=== PATIENT | female | born 1970 | race Caucasian/White ===

== ENCOUNTER 2016-05-15 13:22 | Emergency (ER) | payer OTHER ==
[2016-05-15] MEDS ORDERED: diazePAM 5 MG TABLET PO ONE ×2 (13:25→16:17)
--- NOTE | 2016-05-15 13:25 | PDOC ---
History of Present Illness - General Stated Complaint: DIZZINESS Time Seen by Provider: 05/15/16 13:23 History Source: Patient Exam Limitations: No Limitations - History of Present Illness Initial Comments: 05/15/16 13:23 The patient is a 46-year-old female with a significant past medical history of bipolar disorder, who presents to the emergency department complaining of anxiety. She states that she has had recent increased stress in her life. She woke up this morning feeling "nervous and shaky," dizzy, and with a feeling of "breathlessness." She describes the "dizziness" as "the room spinning." It only occurs with head movement. It lasts for seconds, and then resolves. She denies double vision, difficulty speaking, difficulty swallowing, focal weakness or paresthesias. She reports slight nausea earlier, but no vomiting. The nausea has now resolved. She denies chest pain, back pain. She denies palpitations. The patient denies recent travel/surgeries/immobility, lower extremity edema, calf pain or tenderness, tobacco use, hormone use, personal or family history of thrombosis. 05/15/16 13:25 05/15/16 15:38 Past History - Past Medical History Allergies/Adverse Reactions: Allergies Allergy/AdvReac Type Severity Reaction Status Date / Time No Known Allergies Allergy Verified 04/29/16 14:20 Home Medications: Ambulatory Orders Diazepam [Valium] 5 mg PO Q8H PRN #6 tablet MDD 3 05/15/16 Lexapro - 05/15/16 Meclizine HCl [Antivert -] 25 mg PO TID #30 tablet 05/15/16 Meclizine HCl [Antivert -] 25 mg PO TID #30 tablet 05/15/16 Risperdal 05/15/16 Psychiatric Problems: Yes (depression, anxiety) Suicide Attempt (Hx): No - Immunization History Immunization Up to Date: Yes - Psycho/Social/Smoking Cessation Hx Anxiety: No Suicidal Ideation: No Smoking History: Current every day smoker Have you smoked in the past 12 months: Yes Number of Cigarettes Smoked Daily: 30 'Breaking Loose' booklet given: 12/15/14 Hx Alcohol Use: No Drug/Substance Use Hx: No Review of Systems - Review of Systems Comments:: 05/15/16 13:25 CONSTITUTIONAL: Absent: fever, chills, diaphoresis, generalized weakness, malaise, loss of appetite HEENT: Absent: rhinorrhea, nasal congestion, throat pain, throat swelling, difficulty swallowing, mouth swelling, ear pain, eye pain, visual Changes CARDIOVASCULAR: Absent: chest pain, loss of consciousness, palpitations, irregular heart rate, peripheral edema RESPIRATORY: Present: See history of present illness Absent: cough, orthopnea, wheezing, stridor, hemoptysis GASTROINTESTINAL: Present: Nausea Absent: abdominal pain, abdominal distension, vomiting, diarrhea, constipation, melena, hematochezia GENITOURINARY: Absent: dysuria, frequency, urgency, hesitancy, hematuria, flank pain, genital pain MUSCULOSKELETAL: Absent: myalgia, arthralgia, joint swelling SKIN: Absent: rash, itching, pallor HEMATOLOGIC/IMMUNOLOGIC: Absent: easy bleeding, easy bruising, lymphadenopathy, frequent infections ENDOCRINE: Absent: unexplained weight gain, unexplained weight loss, heat intolerance, cold intolerance NEUROLOGIC: Absent: headache, focal weakness or paresthesias, dizziness, unsteady gait, seizure, mental status changes, bladder or bowel incontinence PSYCHIATRIC: Present: Anxiety Absent: suicidal or homicidal ideation, hallucinations. 05/15/16 13:26 *Physical Exam - Physical Exam Comments: 05/15/16 15:39 GENERAL: Well developed, well nourished. Awake and alert. No acute distress. HEENT: Normocephalic, atraumatic. PERRLA, EOMI. No conjunctival pallor. Sclera are non- icteric. Moist mucous membranes. Oropharynx is clear. NECK: Supple. Full ROM. No JVD. Carotid pulses 2+ and symmetric, without bruits. No thyromegaly. No lymphadenopathy. CARDIOVASCULAR: Regular rate and rhythm. No murmurs, rubs, or gallops. Distal pulses are 2+ and symmetric. PULMONARY: No evidence of respiratory distress. Lungs clear to auscultation bilaterally. No wheezing, rales or rhonchi. ABDOMINAL: Soft. Non-tender. Non-distended. No rebound or guarding. No organomegaly. Normoactive bowel sounds. MUSCULOSKELETAL Normal range of motion at all joints. No bony deformities or tenderness. No CVA tenderness. EXTREMITIES: No cyanosis. No clubbing. No edema. No calf tenderness. SKIN: Warm and dry. Normal capillary refill. No rashes. No jaundice. NEURO: Alert, awake, appropriate. Cranial nerves 2-12 intact. No deficits to light touch and temperature in face, upper extremities and lower extremities. No motor deficits in the in face, upper extremities and lower extremities. No pronator drift. Normoreflexic in the upper and lower extremities. Normal speech. Toes are down-going bilaterally. Gait is normal without ataxia. No dysmetria. No dysdiadochokinesis. No skew deviation. No abnormal nystagmus. Rhomberg is -. Head thrust test is + on right. Dixs-Hallpike test is + on right. PSYCHIATRIC: Cooperative. Good eye contact. Appropriate mood and affect. Heart Score/ECG Review - ECG Intrepretation Comment:: 05/15/16 15:50 Wavy baseline because the patient is anxious and shaking Normal sinus rhythm at 90, normal axis, normal intervals, no ST changes ED Treatment Course - LABORATORY CBC & Chemistry Diagram: 05/15/16 14:51 05/15/16 14:47 Medical Decision Making - Medical Decision Making 05/15/16 13:26 The patient is anxious, but well-appearing On my exam, heart rate is in the 60s Her clinical presentation is consistent with panic attack, perhaps accompanied by peripheral vertigo Will obtain EKG Will administer Valium and reassess 05/15/16 13:45 She states that her anxiety is much better The patient continues to complain of "vertigo" Will administer Benadryl for its anxiolytic as well as antivertiginous properties She also continues to complain that she feels "breathless" and "panicky" She is requesting chest x-ray to "check her lungs" Will perform portable CXR She is low risk for pulmonary embolism with a Wells score of 0 PERC negative 05/15/16 14:11 Chest x-ray emergency Department interpretation: No acute cardiopulmonary disease 05/15/16 14:39 The patients symptoms persist, though they have improved Will obtain labs including d-dimer 05/15/16 15:27 Chemistries noted D-dimer pending 05/15/16 15:40 Anxiety has considerably improved Vertigo is improved, but persists Will administer meclizine 05/15/16 16:31 D-dimer continues to be pending I have asked the lab to expedite the findings Repeat EKG: Normal sinus rhythm, without evidence of ectopy 05/15/16 17:01 Vertigo symptoms much improved Repeat neuro exam nonfocal The patient feels better and would like to go home Clinical impression: Panic attack Peripheral vertigo I discussed the physical exam findings, ancillary test results and final diagnoses with the patient. I answered all of the patient's questions. The patient was satisfied with the care received and felt comfortable with the discharge plan and treatment plan. The patient will call their primary care physician within 24 hours to arrange follow-up and will return to the Emergency Department with any new, persistent or worsening symptoms. *DC/Admit/Observation/Transfer Diagnosis at time of Disposition: Anxiety, Vertigo - Discharge Dispostion Disposition: HOME Condition at time of disposition: Improved - Prescriptions Prescriptions: Meclizine HCl [Antivert -] 25 mg PO TID #30 tablet Meclizine HCl [Antivert -] 25 mg PO TID #30 tablet Diazepam [Valium] 5 mg PO Q8H PRN #6 tablet MDD 3 PRN Reason: Anxiety - Referrals Referrals: Lindsey Ortega MD [Primary Care Provider] - Slick Gurrola MD [Staff Physician] - Call tomorrow (See this psychiatrist for treatment if you need a new psychiatrist.) - Patient Instructions Printed Discharge Instructions: Benign Paroxysmal Positional Vertigo, DI for Panic Disorder Additional Instructions: Return to the emergency department immediately with ANY new, persistent or worsening symptoms. You MUST call and follow up with your doctor tomorrow. Please make sure your doctor reviews the results of your emergency department evaluation.
[2016-05-15 13:34] VITALS: BP 129/89; PULSE 94; BMI 27.4
[2016-05-15] MEDS ORDERED: diazePAM 5 MG TABLET ONE ×2 (13:34→16:19)
[2016-05-15] MEDS ORDERED: diphenhydrAMINE HCL 25 MG CAPSULE (FP) PO ONE ×3 (13:45→13:54)
[2016-05-15 14:54] LABS: BASOPHIL 0.2 % (0-2.0); EOSINOPHIL 1.6 % (0-4.5); MCH 28.4 pg (25.7-33.7); MCHC 33.6 g/dl (32.0-36.0); MEAN CELL VOLUME 84.6 fl (80-96); MEAN PLT VOLUME 7.2 fl (7.5-11.1); NEUTROPHILS 74.1 % (42.8-82.8); PLATELET COUNT 295 K/MM3 (134-434); RDW 15.4 % (11.6-15.6); WHITE BLOOD COUNT 12.2 K/mm3 (4.0-10.0)
[2016-05-15 15:07] LABS: ALBUMIN 3.5 g/dl (3.5-5.0); ALK PHOS 97 U/L (32-92); ANION GAP 8 (8-16); CALCIUM 8.6 mg/dl (8.4-10.2); CO2 23 mmol/L (22-28); CREATININE 0.8 mg/dl (0.6-1.3); GLUCOSE,RANDOM 116 mg/dl (74-106); MAGNESIUM 1.8 mg/dL (1.8-2.4); PHOSPHOROUS 2.2 mg/dl (2.5-4.6); SGOT/AST 21 U/L (10-42); SGPT/ALT 15 U/L (10-40); TOT PROT 6.2 g/dl (6.4-8.3)
[2016-05-15 15:15] VITALS: TEMP 98
[2016-05-15 15:19] LABS: BILIRUBIN,TOTAL < 0.3 mg/dl (0.2-1.0)
[2016-05-15] MEDS ORDERED: MECLIZINE HCL 25 MG TABLET (FP) ONE (15:39)
[2016-05-15] MEDS ORDERED: MECLIZINE HCL 25 MG TABLET (FP) PO ONE (15:42)
--- NOTE | 2016-05-16 14:49 | EKG ---
Test Reason : Blood Pressure : / mmHG Vent. Rate : 085 BPM Atrial Rate : 085 BPM P-R Int : 142 ms QRS Dur : 080 ms QT Int : 378 ms P-R-T Axes : 057 -05 016 degrees QTc Int : 449 ms POOR DATA QUALITY, INTERPRETATION MAY BE ADVERSELY AFFECTED NORMAL SINUS RHYTHM NORMAL ECG WHEN COMPARED WITH ECG OF 29-APR-2016 16:39, T WAVE INVERSION NO LONGER EVIDENT IN ANTERIOR LEADS Confirmed by BIBI MCNALLY, EDWIN ([id number]) on 05/16/2016 2:48:44 PM Referred By: FILIBERTO Confirmed By:EDWIN MTZ MD
== END 2016-05-15 17:16 | disposition home or self-care (01) ==
LOC: SUPCPDRO 13:22 → FER 13:22
DX: F41.9 Anxiety disorder, unspecified (principal); R42 Dizziness and giddiness; F31.9 Bipolar disorder, unspecified; F17.210 Nicotine dependence, cigarettes, uncomplicated
CPT/HCPCS: 36415; 71010-TC; 80053; 83735; 84100; 85025; 85379; 93005; 99283-25

== ENCOUNTER 2016-11-01 16:46 | Emergency (ER) | payer OTHER ==
[2016-11-01 16:53] VITALS: BP 141/80; PULSE 90; TEMP 98; BMI 25.7
--- NOTE | 2016-11-01 16:54 | PDOC ---
History of Present Illness - General Chief Complaint: Psychiatric Stated Complaint: anxiety Time Seen by Provider: 11/01/16 16:51 History Source: Patient Exam Limitations: No Limitations - History of Present Illness Initial Comments: 11/01/16 16:51 The patient is a 46-year-old female with a significant past medical history of anxiety, who presents to the emergency department requesting refills of her Ativan. She states that she recently "ran out" and "needs the medication to reduce her anxiety." She denies suicidal ideation, homicidal ideation, hallucinations, paranoia. Her family member, who is with her, corroborates that she has been anxious, but has not had any of the symptoms mentioned in the previous sentence. She denies palpitations, headache, tremor, nausea/vomiting, fever. Past History - Past Medical History Allergies/Adverse Reactions: Allergies Allergy/AdvReac Type Severity Reaction Status Date / Time No Known Allergies Allergy Verified 11/01/16 16:47 Home Medications: Ambulatory Orders Risperdal 05/15/16 Lorazepam 1 mg PO TID 11/01/16 Psychiatric Problems: Yes (depression, anxiety) Suicide Attempt (Hx): No - Immunization History Immunization Up to Date: Yes - Psycho/Social/Smoking Cessation Hx Anxiety: No Suicidal Ideation: No Smoking History: Current every day smoker Have you smoked in the past 12 months: Yes Number of Cigarettes Smoked Daily: 30 'Breaking Loose' booklet given: 12/15/14 Hx Alcohol Use: No Drug/Substance Use Hx: No Review of Systems - Review of Systems Comments:: 11/01/16 16:52 CONSTITUTIONAL: Absent: fever, chills, fatigue EYES: Absent: visual changes ENT: Absent: ear pain, sore throat CARDIOVASCULAR: Absent: chest pain, palpitations, loss of consciousness RESPIRATORY: Absent: cough, SOB GI: Absent: abdominal pain, nausea, vomiting, constipation, diarrhea GENITOURINARY: Absent: dysuria, frequency, hematuria MUSKULOSKELETAL: Absent: back pain, arthralgia, myalgia SKIN: Absent: rash NEURO: Present: Anxiety Absent: headache, dizziness *Physical Exam - Physical Exam Comments: 11/01/16 16:52 GENERAL: Well-appearing, well-nourished. No apparent distress. HEENT: Normocephalic, atraumatic. PERRL, EOM intact. CARDIOVASCULAR: Normal S1, S2. Regular rate and rhythm. PULMONARY: Clear to auscultation bilaterally. ABDOMEN: Soft, non-distended, non-tender. EXTREMITIES: Normal ROM in all four extremities. No gross deformities. SKIN: Warm, dry. No rash NEUROLOGICAL: Present: Mild anxiety No focal neurological deficits. Medical Decision Making - Medical Decision Making 11/01/16 16:52 The patient is well-appearing and in no acute distress There is no evidence of benzodiazepine withdrawal I have advised her to seek treatment with psychiatry, and have referred her appropriately I have informed her that either a psychiatrist or her primary care physician needs to prescribe long-term anxiolytic medications, including Ativan if indicated Clinical impression: Anxiety Medication refill I discussed the physical exam findings and final diagnoses with the patient. I answered all of the patient's questions. The patient was satisfied with the care received and felt comfortable with the discharge plan and treatment plan. The patient will call their primary care physician within 24 hours to arrange follow-up and will return to the Emergency Department with any new, persistent or worsening symptoms. *DC/Admit/Observation/Transfer Diagnosis at time of Disposition: Anxiety - Discharge Dispostion Disposition: HOME Condition at time of disposition: Stable - Referrals Referrals: Slick Gurrola MD [Staff Physician] - Call tomorrow - Patient Instructions Printed Discharge Instructions: DI for Anxiety -- Adult Additional Instructions: A primary care physician or psychiatrist needs to manage further refills of your Ativan, after you are evaluated for anxiety. Return to the emergency department immediately with ANY new, persistent or worsening symptoms. You MUST call and follow up with your doctor tomorrow. Please make sure your doctor reviews the results of your emergency department evaluation.
== END 2016-11-01 17:05 | disposition home or self-care (01) ==
LOC: FER 16:46
DX: F41.8 Other specified anxiety disorders (principal); F17.210 Nicotine dependence, cigarettes, uncomplicated
CPT/HCPCS: 99281-25

== ENCOUNTER 2016-11-04 14:05 | Emergency (ER) | payer OTHER ==
[2016-11-04 14:09] VITALS: BP 132/83; PULSE 93; TEMP 98.4; BMI 25.7
--- NOTE | 2016-11-04 14:39 | PDOC ---
History of Present Illness <Saul Stone - Last Filed: 11/04/16 14:33> - History of Present Illness Initial Comments: 11/04/16 15:45 The patient is a 46 year old female, with a significant past medical history of anxiety and depression, who presents to the emergency department requesting a refill of her Ativan prescription. The patient was reportedly seen in the ED on 11/01/16 requesting the same request for medication refill and was appropriately referred to psychiatry for refill of her desired medication. The patient reports breaking up with her boyfriend a couple of weeks ago and reports she can't stop thinking about the same things over and over. She reports she is tired and states the medication helps her sleep. She reports making an appointment with a new psychiatrist because she cant see Dr. Way anymore , however, the patient is unable to elaborate on the doctors name, location, time or date of this new appointment. She denies suicidal or homicidal ideations. She denies lower extremity edema. She denies visual changes or hallucinations. She denies chest pain, shortness of breath, palpitations, headache and dizziness. She denies fever, chills, nausea, vomit, diarrhea and constipation. She denies dysuria, frequency, urgency and hematuria. Allergies: NKDA <Shelbie Pettit - Last Filed: 11/04/16 15:46> - General Chief Complaint: RX Refill Stated Complaint: I NEED A MED REFILL Time Seen by Provider: 11/04/16 14:07 Past History - Past Medical History Psychiatric Problems: Yes (depression, anxiety) Suicide Attempt (Hx): No - Immunization History Immunization Up to Date: Yes - Psycho/Social/Smoking Cessation Hx Anxiety: Yes Suicidal Ideation: No Smoking History: Never smoked Have you smoked in the past 12 months: Yes Number of Cigarettes Smoked Daily: 20 Information on smoking cessation initiated: Yes 'Breaking Loose' booklet given: 11/04/16 Hx Alcohol Use: No Drug/Substance Use Hx: No Substance Use Type: None <Saul Stone - Last Filed: 11/04/16 14:33> <Shelbie Pettit - Last Filed: 11/04/16 15:46> - Past Medical History Allergies/Adverse Reactions: Allergies Allergy/AdvReac Type Severity Reaction Status Date / Time No Known Allergies Allergy Verified 11/04/16 14:06 Home Medications: Ambulatory Orders Lorazepam 1 mg PO TID 11/01/16 Review of Systems - Review of Systems Able to Perform ROS?: Yes Comments:: 11/04/16 15:45 CONSTITUTIONAL: No reported: Fever, Chills, Diaphoresis, Generalized Weakness, Malaise, Loss of Appetite HEENT: No reported: Rhinorrhea, Nasal Congestion, Throat Pain, Throat Swelling, Difficulty Swallowing, Mouth Swelling, Ear Pain, Eye Pain, Visual Changes CARDIOVASCULAR: No reported: Chest Pain, Syncope, Palpitations, Irregular Heart Rate, Lightheadedness, Peripheral Edema RESPIRATORY: No reported: Cough, Shortness of Breath, SOB with Exertion, Orthopnea, Wheezing , Stridor, Hemoptysis GASTROINTESTINAL: No reported: Abdominal pain, Abdominal Distension, Nausea, Vomiting, Diarrhea, Constipation, Melena, Hematochezia GENITOURINARY: No reported: Dysuria, Frequency, Urgency, Hesitancy, Flank Pain, Genital Pain MUSCULOSKELETAL: No reported: Myalgia, Arthralgia, Joint Swelling, Back pain, Neck Pain SKIN: No reported: Rash, Itching, Pallor HEMEATOLOGIC/IMMUNOLOGIC: No reported: Easy Bleeding, Easy Bruising, Lymphadenopathy, Frequent infections ENDOCRINE: No reported: Unexplained Weight Gain, Unexplained Weight Loss, Heat Intolerance , Cold Intolerance NEUROLOGIC: No reported: Headache, Focal Weakness, Paresthesias, Vertigo, Lightheadedness, Unsteady Gait, Seizure, Mental Status Changes, Incontinence PSYCHIATRIC: (+) Anxiety, Depression <Shelbie Pettit - Last Filed: 11/04/16 15:46> *Physical Exam - Vital Signs Last Vital Signs Temp Pulse Resp BP Pulse Ox 98.4 F 93 H 18 132/83 100 11/04/16 14:05 11/04/16 14:05 11/04/16 14:05 11/04/16 14:05 11/04/16 14:05 <Saul Stone - Last Filed: 11/04/16 14:33> - Vital Signs Last Vital Signs Temp Pulse Resp BP Pulse Ox 98.4 F 93 H 18 132/83 100 11/04/16 14:05 11/04/16 14:05 11/04/16 14:05 11/04/16 14:11/04/16 14:05 - Physical Exam Comments: 11/04/16 15:45 GENERAL: The patient is awake, alert, and fully oriented, Nontoxic - in no acute distress. HEAD: Normocephalic, atraumatic. EYES: extraocular movements intact, sclera anicteric, conjunctiva clear. ENT: Normal voice, Moist mucous membranes. NECK: Normal range of motion, supple LUNGS: Breath sounds equal, clear to auscultation bilaterally. No wheezes, no rhonchi, no rales. HEART: Regular rate and rhythm, without murmur, rub or gallop. ABDOMEN: Soft, nontender, normoactive bowel sounds. No guarding, no rebound.No CVA tenderness EXTREMITIES: Normal range of motion, no edema. No clubbing or cyanosis. No cords, erythema, or tenderness. NEUROLOGICAL: No facial assymetry, Normal speech, PSYCH: Normal mood, anxious affect. denies SH/HI SKIN: Warm, Dry, normal turgor, <Shelbie Pettit - Last Filed: 11/04/16 15:46> Medical Decision Making - Medical Decision Making 11/04/16 14:34 46y F prewsents with anxiety. pt states she recently broke up with her boyfriend and has been feeling anxious/depressed. pt came t our ED 2 days ago for rx of lorazepam, and would like a refill. The pt is evasive in answering my questions - including why she was anxious, whether she has called to make any follow up appointments, why she has not followed up with her prior psychiatrist in [place]. will defer further benzo rx as per ANSWERER, pt has had 2 rx within the past week (once on 10/26 and one on 11/01). the pt has no other complaints and is not homocidal nor suicidal will have pt fu with PMD or psychiatry for further management return precautions wer discussed. A portion of this note was documented by scribe services under my direction. I have reviewed the details of the note, within reason, and agree with the documentation with the following case summary and management plan written by me <Saul Stone - Last Filed: 11/04/16 14:33> *DC/Admit/Observation/Transfer - Discharge Dispostion Admit: No <Saul Stone - Last Filed: 11/04/16 14:33> - Attestations Scribe Attestion: 11/04/16 15:46 Documentation prepared by Shelbie Pettit, acting as certified medical technician assistant for Saul Stone MD, <Shelbie Pettit - Last Filed: 11/04/16 15:46> Diagnosis at time of Disposition: Anxiety - Discharge Dispostion Condition at time of disposition: Stable - Referrals Referrals: Jac Zamudio MD [Staff Physician] - Slick Gurrola MD [Staff Physician] - - Patient Instructions Printed Discharge Instructions: DI for Anxiety -- Adult Additional Instructions: Return to the emergency department immediately with ANY new, persistent or worsening symptoms. You MUST call and follow up with your doctor or psychiatry for further evaluation of your anxiety. Results were discussed with you. Please make sure your doctor reviews the results of your emergency evaluation. Print Language: ERITREAN
== END 2016-11-04 14:45 | disposition home or self-care (01) ==
LOC: FER 14:05
DX: F41.8 Other specified anxiety disorders (principal); F17.210 Nicotine dependence, cigarettes, uncomplicated
CPT/HCPCS: 99281-25

== ENCOUNTER 2017-03-16 07:34 | Emergency (ER) | payer OTHER ==
[2017-03-16] MEDS ORDERED: LORazepam 1 MG TABLET PO ONE (07:48)
[2017-03-16] MEDS ORDERED: ONDANSETRON *ODT* 4 MG TABLET SL ONE ×2 (07:48→09:01)
--- NOTE | 2017-03-16 07:49 | PDOC ---
History of Present Illness - General Chief Complaint: Pain Stated Complaint: HEADACHE WITH INTERMITTENT DIZZINESS AND NAUSEA Time Seen by Provider: 03/16/17 07:36 - History of Present Illness Initial Comments: 03/16/17 07:54 Chief complaint: Headache and nausea History of present illness: Patient states that she had a "concussion" on March 05, as a result of a fall, was seen at [facility], examined , and had a CAT scan, told she had a "concussion" and told to take Aleve. She felt better until yesterday, when she started to develop a headache and nausea. She is also experiencing some vertigo with change of position and rapid head movement. Review of systems: No chest pain, shortness of breath, abdominal pain, diarrhea , vomiting, hematemesis, melena, bloody stool, urinary tract symptoms, vaginal bleeding or discharge. No fever/chills, URI symptoms, sore throat, cough. No decreased hearing, tinnitus, or ear pain. Patient is perimenopausal with no menses in 4 months. Past medical history: The patient has schizophrenia, anxiety, and is maintained on Risperdal, which she took this morning along with Aleve. She is also been on lorazepam in the past. Denies any other significant medical or surgical problems Social history: Patient lives with her mother, works as a manager of creative services, smokes heavily at least 2 packs per day. Denies alcohol or street drugs. Family history: Reviewed and noncontributory including early coronary artery disease, metabolic disease including diabetes, cancer, psychiatric disease. Physical exam: Alert and oriented 3, well-developed well-nourished, no acute distress. Affect is flat, however, and she stares straight ahead, there is no eye contact, and her speech is monotone. Head is atraumatic. There is no evidence of bruising, hematoma, abrasion, laceration, or other injury PERRLA 3 mm, fundi benign with sharp disc margins and good central venous pulsations. No hemorrhages or exudates ENT is clear Neck is supple without bruit mass or nodes. There is no tenderness or deformity of the cervical spine and full range of motion without pain Chest is clear with full breath sounds throughout bilaterally CV S1 and S2 normal without murmur rub or gallop pulses full and symmetric no JVD or edema no bruits Abdomen soft nontender without mass or organomegaly Extremities no CCE. No visible or palpable trauma Skin clear, no rash, adequate turgor and mucous membranes Neurological C2 to 12 intact. No focal sensory or motor deficits. Strength full and symmetric. Gait stable unimpaired. There is mild transient vertigo with rapid head movement and change of position, which resolves within seconds. Impression: Head injury approximately 1 week and a half ago, evaluated with CAT scan at another hospital, told she had a concussion. She appeared to be improving until yesterday. Symptoms today suggest an acute labyrinthitis, most likely unrelated to the head injury. There is also a component of anxiety and possibly an exacerbation of her schizophrenic symptoms. Plan: Symptomatic treatment and observation. Further evaluation depending on response to therapy. Past History - Past Medical History Allergies/Adverse Reactions: Allergies Allergy/AdvReac Type Severity Reaction Status Date / Time No Known Allergies Allergy Verified 11/04/16 14:06 Home Medications: Ambulatory Orders Ibuprofen 600 mg PO QID PRN #20 tablet 03/16/17 Meclizine HCl 12.5 mg PO TID PRN #15 tablet 03/16/17 Ondansetron [Zofran Odt -] 4 mg SL TID PRN #15 od.tablet 03/16/17 Risperidone [Risperdal] 3 mg PO TID 03/16/17 Psychiatric Problems: Yes (depression, anxiety) - Immunization History Immunization Up to Date: Yes - Suicide/Smoking/Psychosocial Hx Smoking History: Never smoked Have you smoked in the past 12 months: Yes Number of Cigarettes Smoked Daily: 20 'Breaking Loose' booklet given: 11/04/16 Hx Alcohol Use: No Drug/Substance Use Hx: No Substance Use Type: None Medical Decision Making - Medical Decision Making 03/16/17 10:32 Patient is improved. Neurological exam remains intact. Hasn't appointment to see a neurologist next Tuesday. Additional medication prescribed and directed to stay home, rest, return to ER if symptoms worsen, otherwise follow up with neurologist and primary physician as scheduled. *DC/Admit/Observation/Transfer Diagnosis at time of Disposition: Post concussion syndrome - Discharge Dispostion Disposition: HOME Condition at time of disposition: Improved Admit: No - Prescriptions Prescriptions: Ibuprofen 600 mg PO QID PRN #20 tablet PRN Reason: Headache Meclizine HCl 12.5 mg PO TID PRN #15 tablet PRN Reason: Vertigo Ondansetron [Zofran Odt -] 4 mg SL TID PRN #15 od.tablet PRN Reason: Nausea And/Or Vomiting - Referrals - Patient Instructions Printed Discharge Instructions: DI for Postconcussion Syndrome Additional Instructions: Medication as needed. See neurologist as scheduled early next week. Return to ER if symptoms worsen. - Post Discharge Activity
[2017-03-16 07:52] VITALS: BP 143/103; PULSE 108; TEMP 98.5; BMI 27.4
[2017-03-16] MEDS ORDERED: ONDANSETRON *ODT* 4 MG TABLET ONE ×2 (07:54→09:12)
[2017-03-16] MEDS ORDERED: LORazepam 0.5 MG TABLET ONE (07:54)
[2017-03-16] MEDS ORDERED: MECLIZINE HCL 25 MG TABLET (FP) PO ONE (09:01)
[2017-03-16] MEDS ORDERED: MECLIZINE HCL 25 MG TABLET (FP) ONE (09:11)
== END 2017-03-16 10:35 | disposition home or self-care (01) ==
LOC: FER 07:34
DX: F07.81 Postconcussional syndrome (principal); Z87.891 Personal history of nicotine dependence; F20.9 Schizophrenia, unspecified; F41.9 Anxiety disorder, unspecified
CPT/HCPCS: 99282-25